=== PATIENT | male | born 2000 | race Native Hawaiian/Other Pacific Islander ===

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

== ENCOUNTER 2022-01-13 12:10 | Emergency (ER) | payer OTHER ==
[~2022-01-13] VITALS: Ht 182.9 cm; Wt 111.6 kg
[2022-01-13 15:35] VITALS: BP 106/76; TEMP 98.9
== END 2022-01-13 15:32 | disposition home or self-care (01) ==
LOC: ED 12:10
DX: R55 Syncope and collapse (principal)
CPT/HCPCS: 36415; 96365; 99284